=== PATIENT | male | born 1990 | race African-American/Black ===

== ENCOUNTER → 2017-04-05 | Emergency (ER) | payer OTHER ==
[~2017-04-05] MED LIST: ALBU17IN2 INH; ALBU1TAB4 INH; ALBU83IN INH; BREO1INH INH
[2017-04-05 02:56] VITALS: BP 159/110
== END | disposition home or self-care (01) ==
LOC: M ED 03:00
DX: J45.909 Unspecified asthma, uncomplicated (principal)

== ENCOUNTER 2017-08-14 08:29 | Emergency (ER) | payer OTHER ==
[~2017-08-14] VITALS: Ht 177.8 cm; Wt 131.8 kg
[2017-08-14] MEDS ORDERED: DICYCLOMINE INJ 20MG/2ML (J0500) IM ONE (09:30)
[2017-08-14] MEDS ORDERED: ONDANSETRON 4MG/2ML VIAL (J2405) IV ONE (09:30)
[2017-08-14] MEDS ORDERED: NS 1,000 ML IV ONE (09:30)
[2017-08-14] MEDS ORDERED: KETOROLAC 30 MG/ML VIAL (J1885) IV ONE (09:30)
[2017-08-14 09:57] LABS: BASO % 0.2 % (0.0-1.0); EOS # 0.1 10^3/uL (0.0-0.50); EOS % 0.5 % (0.0-3.0); IMMATURE GRANULOCYTE % 0.3 % (0-0); LYMPH # 0.8 10^3/uL (1.5-6.5); LYMPH % 6.6 % (24.0-44.0); MEAN CORPUSCULAR HEMOGLOBIN 28.8 pg (27.0-33.0); MEAN CORPUSCULAR HGB CONC 35.3 g/dl (32.0-36.5); MEAN CORPUSCULAR VOLUME 81.5 fl (80.0-96.0); MONO # 0.3 10^3/uL (0.0-0.8); MONO % 2.4 % (0.0-5.0); NEUTROPHILS # 11.3 10^3/uL (1.8-7.7); PLATELET COUNT, AUTOMATED 168 10^3/uL (150-450); WHITE BLOOD COUNT 12.5 10^3/uL (4.0-10.0)
[2017-08-14 10:16] LABS: ALBUMIN 4.5 GM/DL (3.2-5.2); ALKALINE PHOSPHATASE 68 U/L (45-117); ALT/SGPT 84 U/L (12-78); ANION GAP 6 MEQ/L (8-16); AST/SGOT 70 U/L (15-37); BILIRUBIN,DIRECT 0.3 MG/DL (0.0-0.2); BLOOD UREA NITROGEN 9 MG/DL (7-18); CALCIUM LEVEL 9.3 MG/DL (8.5-10.1); CARBON DIOXIDE LEVEL 30 MEQ/L (21-32); CHLORIDE LEVEL 104 MEQ/L (98-107); CREATININE FOR GFR 1.09 MG/DL (0.70-1.30); GLOMERULAR FILTRATION RATE > 60.0 (>60); GLUCOSE, FASTING 105 MG/DL (70-105); POTASSIUM SERUM 4.4 MEQ/L (3.5-5.1); SODIUM LEVEL 140 MEQ/L (136-145); TOTAL PROTEIN 7.5 GM/DL (6.4-8.2)
[2017-08-14] MEDS ORDERED: ALBUTEROL SULFATE 2.5 MG/0.5 ML INH NEB SOLN NEB ONE (10:30)
[2017-08-14] MEDS ORDERED: methylPREDNISolone INJ 125 MG/2 ML VIAL (J2930) IV ONE (10:30)
[2017-08-14] MEDS ORDERED: BENT20TA PO (10:34)
[2017-08-14] MEDS ORDERED: ZOFR4TAB3 PO (10:34)
[2017-08-14 10:35] VITALS: BP 137/77
== END 2017-08-14 11:08 | disposition home or self-care (01) ==
LOC: M ED 08:29
DX: B34.9 Viral infection, unspecified (principal); J45.909 Unspecified asthma, uncomplicated; Z79.899 Other long term (current) drug therapy; Z91.013 Allergy to seafood; Z87.891 Personal history of nicotine dependence
CPT/HCPCS: 80048; 80076; 83605; 83690; 85025; 94640; 96372; 96374; 96375; 99284; J0500; J1885; J2405; J2930

== ENCOUNTER 2017-10-04 00:06 | Emergency (ER) | payer OTHER ==
[~2017-10-04] VITALS: Ht 177.8 cm; Wt 131.8 kg
[2017-10-04 00:06] VITALS: BP 163/92
[~2017-10-04 00:06] MED LIST changes: +BENT20TA PO; +ZOFR4TAB3 PO
[2017-10-04 01:38] LABS: ABG BASE EXCESS -0.3 (-2.0-2.0); ABG HCO3 24.2 MEQ/L (22.0-26.0); ABG PARTIAL PRESSURE CO2 39.2 mmHg (35.0-45.0); ABG PARTIAL PRESSURE O2 75.5 mmHg (75.0-100.0); ABG STANDARD HCO3 24.2 MEQ/L (22.0-26.0); ABG TOTAL CO2 25.4 MEQ/L (22.0-29.0); ABG pH (ARTERIAL) 7.408 UNITS (7.350-7.450)
[2017-10-04] MEDS ORDERED: MORPHINE 2 MG/ML 1ML SYRINGE IV ONE (02:15)
[2017-10-04 02:55] LABS: INR 1.02
[2017-10-04 03:16] LABS: WHITE BLOOD COUNT 8.1 10^3/uL (4.0-10.0)
[2017-10-04 03:17] LABS: BASO % 0.4 % (0.0-1.0); IMMATURE GRANULOCYTE % 0.4 % (0-0); LYMPH % 12.8 % (24.0-44.0); MEAN CORPUSCULAR HEMOGLOBIN 28.3 pg (27.0-33.0); MEAN CORPUSCULAR HGB CONC 35.1 g/dl (32.0-36.5); MEAN CORPUSCULAR VOLUME 80.8 fl (80.0-96.0); MONO # 0.3 10^3/uL (0.0-0.8); MONO % 3.9 % (0.0-5.0); NEUTROPHILS # 6.7 10^3/uL (1.8-7.7); NEUTROPHILS % 82.5 % (36.0-66.0); PLATELET COUNT, AUTOMATED 178 10^3/uL (150-450); RED CELL DISTRIBUTION WIDTH 12.2 % (11.5-14.5)
[2017-10-04 03:18] LABS: ANION GAP 5 MEQ/L (8-16); BLOOD UREA NITROGEN 12 MG/DL (7-18); CALCIUM LEVEL 9.2 MG/DL (8.5-10.1); CARBON DIOXIDE LEVEL 29 MEQ/L (21-32); CHLORIDE LEVEL 105 MEQ/L (98-107); CREATININE FOR GFR 0.94 MG/DL (0.70-1.30); GLOMERULAR FILTRATION RATE > 60.0 (>60); GLUCOSE, FASTING 133 MG/DL (70-105); POTASSIUM SERUM 4.6 MEQ/L (3.5-5.1); SODIUM LEVEL 139 MEQ/L (136-145)
[2017-10-04] MEDS ORDERED: ISOVUE-370 76% 100ML VIAL (Q9967) As Ordered ONE (03:24)
--- NOTE | 2017-10-04 04:10 | REPUSA ---
CLINICAL HISTORY: Dyspnea, elevated d-dimers, exclude PE. TECHNIQUE: Multiple incremental axial, coronal and oblique images are obtained from the thoracic inle t to the upper abdomen. Intravenous contrast material was administered as per pulmonary embolism prot ocol. COMMENTS: There is poor opacification of pulmonary arterial system. Aorta is of normal caliber without evidence for dissection or aneurysm. There is no evidence of pleural or parenchymal mass. There are no pleural effusions. There is no evid ence of hilar or mediastinal lymphadenopathy. The heart and great vessels are within normal limits. Images of the upper abdomen demonstrate no evidence of adrenal mass. The bony structures are free of lytic or blastic lesions. IMPRESSION: Poor opacification of pulmonary arterial system Thank you for your kind referral of this patient.
--- NOTE | 2017-10-04 06:32 | ECGEPIP ---
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
--- NOTE | 2017-10-04 07:40 | REP ---
PA and lateral chest: There are no comparisons. The lung way are clear. The cardiac size is normal The kizzy, mediastinum, and bony thorax are unremarkable. Impression: Negative PA and lateral chest. No Signed by Salas Gutierrez MD 10/04/2017 07:31 A
== END 2017-10-04 04:35 | disposition home or self-care (01) ==
LOC: M ED 01:03
DX: R00.2 Palpitations (principal); J45.909 Unspecified asthma, uncomplicated; Z79.51 Long term (current) use of inhaled steroids; Z91.013 Allergy to seafood
CPT/HCPCS: 36600; 71020; 71275; 80048; 82803; 85025; 85610; 85730; 93005; 96374; 99284; Q9967

== ENCOUNTER 2017-10-21 20:37 | Emergency (ER) | payer OTHER | END 2017-10-21 23:46 | disposition home or self-care (01) | LOC: M ED 20:37 | DX: F41.9 Anxiety disorder, unspecified (principal); J45.909 Unspecified asthma, uncomplicated | CPT/HCPCS: 87804 ==

== ENCOUNTER → 2017-10-22 | Outpatient (CLI) | payer OTHER ==
[2017-10-22 13:11] LABS: FREE T4 1.18 NG/DL (0.76-1.46); THYROID STIMULATING HORMONE 0.651 uIU/ML (0.358-3.740)
[2017-10-22 13:35] LABS: ESTIMATED AVERAGE GLUCOSE 111 MG/DL (60-110); HEMOGLOBIN A1c 5.5 %
== END ==
LOC: M LAB 12:05
DX: R00.2 Palpitations (principal); Z13.1 Encounter for screening for diabetes mellitus
CPT/HCPCS: 84443

== ENCOUNTER → 2017-10-22 | Outpatient (REF) | payer OTHER | LOC: M SFHCPLAZ 11:29 | DX: R00.2 Palpitations (principal); Z13.1 Encounter for screening for diabetes mellitus ==

== ENCOUNTER 2017-10-23 21:27 | Emergency (ER) | payer OTHER ==
[2017-10-23] MEDS: NS 1,000 ML IV (22:15)
[2017-10-23] MEDS: LORazepam 0.5 MG TAB PO (22:26)
[2017-10-23 22:38] LABS: BASO # 0.1 10^3/uL (0.0-0.2); BASO % 0.5 % (0.0-1.0); EOS # 0.1 10^3/uL (0.0-0.50); EOS % 0.7 % (0.0-3.0); HEMATOCRIT 50.8 % (42.0-52.0); HEMOGLOBIN 18.5 g/dl (14.0-18.0); IMMATURE GRANULOCYTE % 0.4 % (0-0); LYMPH # 3.1 10^3/uL (1.5-6.5); LYMPH % 28.2 % (24.0-44.0); MEAN CORPUSCULAR HEMOGLOBIN 28.4 pg (27.0-33.0); MEAN CORPUSCULAR HGB CONC 36.4 g/dl (32.0-36.5); MEAN CORPUSCULAR VOLUME 77.9 fl (80.0-96.0); MONO # 0.7 10^3/uL (0.0-0.8); MONO % 6.4 % (0.0-5.0); NEUTROPHILS # 7.1 10^3/uL (1.8-7.7); NEUTROPHILS % 63.8 % (36.0-66.0); PLATELET COUNT, AUTOMATED 229 10^3/uL (150-450); RED BLOOD COUNT 6.52 10^6/uL (4.30-6.10); RED CELL DISTRIBUTION WIDTH 11.9 % (11.5-14.5); WHITE BLOOD COUNT 11.2 10^3/uL (4.0-10.0)
[2017-10-23 22:49] LABS: PROTHROMBIN TIME 13.3 SECONDS (12.4-14.5)
[2017-10-23 22:50] LABS: PARTIAL THROMBOPLASTIN TIME 30.3 SECONDS (26.8-37.9)
[2017-10-23] MEDS ORDERED: ISOVUE-370 76% 100ML VIAL (Q9967) As Ordered (22:55)
[2017-10-23 22:57] LABS: ALBUMIN 4.8 GM/DL (3.2-5.2); ALBUMIN/GLOBULIN RATIO 1.41 (1.00-1.93); ALKALINE PHOSPHATASE 66 U/L (45-117); ALT/SGPT 66 U/L (12-78); ANION GAP 10 MEQ/L (8-16); AST/SGOT 33 U/L (7-37); BILIRUBIN,DIRECT 0.2 MG/DL (0.0-0.2); BILIRUBIN,TOTAL 0.9 MG/DL (0.2-1.0); BLOOD UREA NITROGEN 15 MG/DL (7-18); CALCIUM LEVEL 9.4 MG/DL (8.5-10.1); CARBON DIOXIDE LEVEL 24 MEQ/L (21-32); CHLORIDE LEVEL 104 MEQ/L (98-107); CPK CREATINE PHOSPHOKINASE 147 U/L (39-308); CREATININE FOR GFR 1.07 MG/DL (0.70-1.30); GLOMERULAR FILTRATION RATE > 60.0 (>60); GLUCOSE, FASTING 124 MG/DL (70-105); MB/CK RELATIVE INDEX 0.68 (< OR =4); POTASSIUM SERUM 3.5 MEQ/L (3.5-5.1); SODIUM LEVEL 138 MEQ/L (136-145); TOTAL PROTEIN 8.2 GM/DL (6.4-8.2); TROPONIN I < 0.02 NG/ML (< 0.10)
== END 2017-10-24 00:17 | disposition home or self-care (01) ==
LOC: M ED 10-24 00:17
DX: F41.1 Generalized anxiety disorder (principal); R00.2 Palpitations; I10 Essential (primary) hypertension; J45.909 Unspecified asthma, uncomplicated; F12.90 Cannabis use, unspecified, uncomplicated; Z79.51 Long term (current) use of inhaled steroids; Z79.899 Other long term (current) drug therapy; Z91.013 Allergy to seafood; Z82.49 Family history of ischemic heart disease and other diseases of the circulatory system; Z87.891 Personal history of nicotine dependence
CPT/HCPCS: Q9967

== ENCOUNTER → 2017-10-29 | Outpatient (CLI) | payer OTHER ==
[2017-10-29 16:04] LABS: BASO % 0.5 % (0.0-1.0); EOS # 0.1 10^3/uL (0.0-0.50); EOS % 1.2 % (0.0-3.0); HEMATOCRIT 45.1 % (42.0-52.0); HEMOGLOBIN 16.1 g/dl (14.0-18.0); IMMATURE GRANULOCYTE % 0.4 % (0-0); LYMPH # 2.6 10^3/uL (1.5-6.5); LYMPH % 32.9 % (24.0-44.0); MEAN CORPUSCULAR HEMOGLOBIN 28.2 pg (27.0-33.0); MEAN CORPUSCULAR HGB CONC 35.7 g/dl (32.0-36.5); MEAN CORPUSCULAR VOLUME 79.1 fl (80.0-96.0); MONO # 0.5 10^3/uL (0.0-0.8); MONO % 6.8 % (0.0-5.0); NEUTROPHILS # 4.5 10^3/uL (1.8-7.7); NEUTROPHILS % 58.2 % (36.0-66.0); PLATELET COUNT, AUTOMATED 156 10^3/uL (150-450); RED CELL DISTRIBUTION WIDTH 11.8 % (11.5-14.5); WHITE BLOOD COUNT 7.8 10^3/uL (4.0-10.0)
[2017-11-04 00:07] LABS: METANEPHRINE PLASMA 37 pg/mL (0-62); NORMETANEPHRINE PLASMA 144 pg/mL (0-145)
== END ==
LOC: M LAB 15:08
DX: F06.4 Anxiety disorder due to known physiological condition (principal)
CPT/HCPCS: 83835

== ENCOUNTER 2017-11-21 01:51 | Observation (INO) | payer OTHER ==
[2017-11-21 03:14] LABS: BASO % 0.6 % (0.0-1.0); EOS # 0.2 10^3/uL (0.0-0.50); EOS % 2.2 % (0.0-3.0); HEMATOCRIT 43.9 % (42.0-52.0); HEMOGLOBIN 15.2 g/dl (14.0-18.0); IMMATURE GRANULOCYTE % 0.1 % (0-0); LYMPH # 3.1 10^3/uL (1.5-6.5); LYMPH % 42.7 % (24.0-44.0); MEAN CORPUSCULAR HEMOGLOBIN 28.5 pg (27.0-33.0); MEAN CORPUSCULAR HGB CONC 34.6 g/dl (32.0-36.5); MEAN CORPUSCULAR VOLUME 82.4 fl (80.0-96.0); MONO # 0.4 10^3/uL (0.0-0.8); MONO % 5.8 % (0.0-5.0); NEUTROPHILS # 3.5 10^3/uL (1.8-7.7); NEUTROPHILS % 48.6 % (36.0-66.0); PLATELET COUNT, AUTOMATED 148 10^3/uL (150-450); RED BLOOD COUNT 5.33 10^6/uL (4.30-6.10); RED CELL DISTRIBUTION WIDTH 12.1 % (11.5-14.5); WHITE BLOOD COUNT 7.2 10^3/uL (4.0-10.0)
[2017-11-21 03:29] LABS: ALBUMIN 4.1 GM/DL (3.2-5.2); ALBUMIN/GLOBULIN RATIO 1.28 (1.00-1.93); ALKALINE PHOSPHATASE 58 U/L (45-117); ALT/SGPT 94 U/L (12-78); ANION GAP 6 MEQ/L (8-16); AST/SGOT 168 U/L (7-37); BILIRUBIN,DIRECT < 0.1 MG/DL (0.0-0.2); BILIRUBIN,TOTAL 0.3 MG/DL (0.2-1.0); BLOOD UREA NITROGEN 8 MG/DL (7-18); CALCIUM LEVEL 8.9 MG/DL (8.5-10.1); CARBON DIOXIDE LEVEL 30 MEQ/L (21-32); CHLORIDE LEVEL 104 MEQ/L (98-107); CREATININE FOR GFR 1.03 MG/DL (0.70-1.30); GLOMERULAR FILTRATION RATE > 60.0 (>60); GLUCOSE, FASTING 113 MG/DL (70-100); PHOSPHORUS LEVEL 4.2 MG/DL (2.5-4.9); POTASSIUM SERUM 3.7 MEQ/L (3.5-5.1); SODIUM LEVEL 140 MEQ/L (136-145); TOTAL PROTEIN 7.3 GM/DL (6.4-8.2); TROPONIN I < 0.02 NG/ML (< 0.10)
[2017-11-21 03:41] LABS: CK-MB VALUE MASS 2.2 NG/ML (0.0-3.6); CPK CREATINE PHOSPHOKINASE 6327 U/L (39-308); MB/CK RELATIVE INDEX 0.03 (< OR =4); THYROID STIMULATING HORMONE 0.932 uIU/ML (0.358-3.740)
[2017-11-21] MEDS: NS 1,000 ML IV ×8 (03:45→18:04)
[2017-11-21] MEDS ORDERED: ACETAMINOPHEN 500 MG TAB PO ×2 (04:00)
[2017-11-21] MEDS: ALBUTEROL SULFATE 2.5 MG/0.5 ML INH NEB SOLN INH ×2 (07:51)
[2017-11-21] MEDS: BUDESONIDE 0.5 MG/2 ML INHALATION SUSPENSION INH ×4 (07:51→21:13)
[2017-11-21] MEDS: ENOXAPARIN 40 MG/0.4 ML SYRINGE (J1650) SC ×2 (08:51)
[2017-11-21] MEDS: hydrOXYzine 25 MG TAB PO ×2 (08:51)
[2017-11-21] MEDS: ALBUTEROL 90 MCG/ACT 8GM HFA INHALER INH ×2 (10:52)
[2017-11-21] MEDS ORDERED: IPRATROPIUM 0.5MG/ALBUTEROL 2.5MG INH SOL UD 3ML (DUONEB)(J7620) NEB ×2 (13:00)
[2017-11-21] MEDS: IPRATROPIUM 0.5MG/ALBUTEROL 2.5MG INH SOL UD 3ML (DUONEB)(J7620) NEB ×4 (13:27→21:13)
[2017-11-21 13:41] LABS: TROPONIN I < 0.02 NG/ML (< 0.10)
[2017-11-21 13:52] LABS: CK-MB VALUE MASS 1.8 NG/ML (0.0-3.6); CPK CREATINE PHOSPHOKINASE 3901 U/L (39-308); MB/CK RELATIVE INDEX 0.04 (< OR =4)
[2017-11-21 22:44] LABS: CK-MB VALUE MASS 1.1 NG/ML (0.0-3.6); CPK CREATINE PHOSPHOKINASE 2955 U/L (39-308); MB/CK RELATIVE INDEX 0.03 (< OR =4); TROPONIN I < 0.02 NG/ML (< 0.10)
[2017-11-22] MEDS: NS 1,000 ML IV ×6 (00:11→13:17)
[2017-11-22] MEDS: IPRATROPIUM 0.5MG/ALBUTEROL 2.5MG INH SOL UD 3ML (DUONEB)(J7620) NEB ×4 (01:47→07:38)
[2017-11-22 06:10] LABS: BASO # 0.1 10^3/uL (0.0-0.2); BASO % 0.9 % (0.0-1.0); EOS # 0.2 10^3/uL (0.0-0.50); EOS % 2.3 % (0.0-3.0); HEMATOCRIT 40.9 % (42.0-52.0); HEMOGLOBIN 14.2 g/dl (14.0-18.0); IMMATURE GRANULOCYTE % 0.2 % (0-0); LYMPH % 45.7 % (24.0-44.0); MEAN CORPUSCULAR HEMOGLOBIN 28.3 pg (27.0-33.0); MEAN CORPUSCULAR HGB CONC 34.7 g/dl (32.0-36.5); MEAN CORPUSCULAR VOLUME 81.6 fl (80.0-96.0); MONO # 0.4 10^3/uL (0.0-0.8); MONO % 5.6 % (0.0-5.0); NEUTROPHILS % 45.3 % (36.0-66.0); PLATELET COUNT, AUTOMATED 122 10^3/uL (150-450); RED BLOOD COUNT 5.01 10^6/uL (4.30-6.10); RED CELL DISTRIBUTION WIDTH 12.1 % (11.5-14.5); WHITE BLOOD COUNT 6.6 10^3/uL (4.0-10.0)
[2017-11-22 06:37] LABS: ALBUMIN 3.4 GM/DL (3.2-5.2); ALBUMIN/GLOBULIN RATIO 1.21 (1.00-1.93); ALKALINE PHOSPHATASE 48 U/L (45-117); ALT/SGPT 73 U/L (12-78); ANION GAP 7 MEQ/L (8-16); AST/SGOT 71 U/L (7-37); BILIRUBIN,TOTAL 0.3 MG/DL (0.2-1.0); BLOOD UREA NITROGEN 7 MG/DL (7-18); CALCIUM LEVEL 8.2 MG/DL (8.5-10.1); CARBON DIOXIDE LEVEL 25 MEQ/L (21-32); CHLORIDE LEVEL 111 MEQ/L (98-107); CPK CREATINE PHOSPHOKINASE 2036 U/L (39-308); CREATININE FOR GFR 0.79 MG/DL (0.70-1.30); GLOMERULAR FILTRATION RATE > 60.0 (>60); GLUCOSE, FASTING 90 MG/DL (70-100); MAGNESIUM LEVEL 2.1 MG/DL (1.8-2.4); POTASSIUM SERUM 4.1 MEQ/L (3.5-5.1); SODIUM LEVEL 143 MEQ/L (136-145); TOTAL PROTEIN 6.2 GM/DL (6.4-8.2)
[2017-11-22] MEDS: BUDESONIDE 0.5 MG/2 ML INHALATION SUSPENSION INH ×2 (07:38)
[2017-11-22] MEDS: ENOXAPARIN 40 MG/0.4 ML SYRINGE (J1650) SC ×2 (09:47)
[2017-11-22] MEDS: hydrOXYzine 25 MG TAB PO ×2 (09:47)
== END 2017-11-22 13:43 | disposition home or self-care (01) ==
LOC: M ED 01:51 → M ED INP 01:52 → M MSPAV 16:09
DX: R00.2 Palpitations (principal); M62.82 Rhabdomyolysis; J45.909 Unspecified asthma, uncomplicated; K21.9 Gastro-esophageal reflux disease without esophagitis; F41.9 Anxiety disorder, unspecified; A63.0 Anogenital (venereal) warts; Z87.891 Personal history of nicotine dependence; F12.10 Cannabis abuse, uncomplicated
CPT/HCPCS: J1650

== ENCOUNTER 2018-01-30 00:18 | Emergency (ER) | payer OTHER ==
[2018-01-30] MEDS: ONDANSETRON 4MG/2ML VIAL (J2405) IV (03:30)
[2018-01-30] MEDS: NS 1,000 ML IV (04:14)
[2018-01-30] MEDS: PANTOPRAZOLE 40MG INJ (PROTONIX) (C9113) IV (04:51)
[2018-01-30] MEDS: KETOROLAC 30 MG/ML VIAL (J1885) IV (04:51)
[2018-01-30 05:04] LABS: BASO % 0.3 % (0.0-1.0); EOS # 0.1 10^3/uL (0.0-0.50); EOS % 1.1 % (0.0-3.0); HEMATOCRIT 45.4 % (42.0-52.0); HEMOGLOBIN 15.9 g/dl (13.5-17.5); IMMATURE GRANULOCYTE % 0.5 % (0-3.0); LYMPH # 1.4 10^3/uL (1.5-6.5); LYMPH % 18.4 % (24.0-44.0); MEAN CORPUSCULAR HEMOGLOBIN 28.2 pg (27.0-33.0); MEAN CORPUSCULAR VOLUME 80.6 fl (80.0-96.0); MONO # 0.5 10^3/uL (0.0-0.8); MONO % 6.3 % (0.0-5.0); NEUTROPHILS # 5.4 10^3/uL (1.8-7.7); NEUTROPHILS % 73.4 % (36.0-66.0); PLATELET COUNT, AUTOMATED 144 10^3/uL (150-450); RED BLOOD COUNT 5.63 10^6/uL (4.30-6.10); WHITE BLOOD COUNT 7.4 10^3/uL (4.0-10.0)
[2018-01-30 05:41] LABS: ALBUMIN 3.9 GM/DL (3.2-5.2); ALBUMIN/GLOBULIN RATIO 1.39 (1.00-1.93); ALKALINE PHOSPHATASE 66 U/L (45-117); ALT/SGPT 58 U/L (12-78); ANION GAP 7 MEQ/L (8-16); AST/SGOT 51 U/L (7-37); BILIRUBIN,DIRECT 0.1 MG/DL (0.0-0.2); BILIRUBIN,TOTAL 0.7 MG/DL (0.2-1.0); BLOOD UREA NITROGEN 9 MG/DL (7-18); CALCIUM LEVEL 8.8 MG/DL (8.5-10.1); CARBON DIOXIDE LEVEL 26 MEQ/L (21-32); CHLORIDE LEVEL 108 MEQ/L (98-107); CREATININE FOR GFR 0.77 MG/DL (0.70-1.30); GLOMERULAR FILTRATION RATE > 60.0 (>60); GLUCOSE, FASTING 95 MG/DL (70-100); LIPASE 145 U/L (73-393); POTASSIUM SERUM 4.7 MEQ/L (3.5-5.1); SODIUM LEVEL 141 MEQ/L (136-145); TOTAL PROTEIN 6.7 GM/DL (6.4-8.2)
== END 2018-01-30 06:56 | disposition home or self-care (01) ==
LOC: M ED 00:18
DX: K52.9 Noninfective gastroenteritis and colitis, unspecified (principal); F12.10 Cannabis abuse, uncomplicated; Z79.899 Other long term (current) drug therapy; Z91.013 Allergy to seafood
CPT/HCPCS: C9113

== ENCOUNTER 2018-05-03 12:36 | Emergency (ER) | payer OTHER | END 2018-05-03 14:22 | disposition home or self-care (01) | LOC: M ED 12:36 | DX: S99.911A Unspecified injury of right ankle, initial encounter (principal); X50.1XXA Overexertion from prolonged static or awkward postures, initial encounter; Y92.830 Public park as the place of occurrence of the external cause; J45.909 Unspecified asthma, uncomplicated; I10 Essential (primary) hypertension; K21.9 Gastro-esophageal reflux disease without esophagitis; F41.9 Anxiety disorder, unspecified; Z87.891 Personal history of nicotine dependence; Z87.81 Personal history of (healed) traumatic fracture; Z91.013 Allergy to seafood; Z79.899 Other long term (current) drug therapy | CPT/HCPCS: 73610 ==

== ENCOUNTER 2019-04-04 14:42 | Emergency (ER) | payer MEDICAID, OTHER, SELFPAY ==
[~2019-04-04] VITALS: Ht 177.8 cm; Wt 131.8 kg
[~2019-04-04 14:42] MED LIST changes: +ASPI-222 PO; +ATIV1TAB10 PO; +CHLO125TA PO; +FLON1SPR; +HYDR-3363 PO; +HYDR-3715 PO; +QVAR80AE10 IN; +RANI300C PO; +VENL75CA47 PO; +ZOFR4TAB14 PO; -ZOFR4TAB3 PO
[2019-04-04 14:43] VITALS: BP 137/84
[2019-04-04] MEDS ORDERED: NAPR-837 PO (15:21)
--- NOTE | 2019-04-05 07:41 | REP ---
RIGHT ANKLE, FOUR VIEWS: Four views of the right ankle are performed. There is a rounded calcific density adjacent to the medial malleolus which probably represents an old avulsion fracture. I see no acute fracture or dislocation. The ankle mortise is anatomic. IMPRESSION: No acute fracture or dislocation. Probably an old avulsion fracture medial malleolus. Electronically Signed by Salas Garcia MD 04/05/2019 08:37 A
== END 2019-04-04 15:43 | disposition home or self-care (01) ==
LOC: M ED 14:42
DX: S96.911A Strain of unspecified muscle and tendon at ankle and foot level, right foot, initial encounter (principal); M65.271 Calcific tendinitis, right ankle and foot; X58.XXXA Exposure to other specified factors, initial encounter; Y92.9 Unspecified place or not applicable; Y93.62 Activity, american flag or touch football; Y99.9 Unspecified external cause status; J45.909 Unspecified asthma, uncomplicated; Z87.81 Personal history of (healed) traumatic fracture; Z79.899 Other long term (current) drug therapy; Z91.013 Allergy to seafood

== ENCOUNTER 2019-04-09 22:10 | Emergency (ER) | payer MEDICAID, SELFPAY ==
[~2019-04-09] VITALS: Ht 177.8 cm; Wt 131.8 kg
[2019-04-09 22:10] VITALS: BP 144/81
[~2019-04-09 22:10] MED LIST changes: +NAPR-837 PO
[2019-04-09] MEDS ORDERED: AUGM500T34 PO (23:29)
== END 2019-04-09 23:35 | disposition home or self-care (01) ==
LOC: M ED 22:10
DX: R59.0 Localized enlarged lymph nodes (principal); J45.909 Unspecified asthma, uncomplicated; Z91.013 Allergy to seafood; F41.9 Anxiety disorder, unspecified; Z79.899 Other long term (current) drug therapy

== ENCOUNTER 2019-10-05 14:27 | Emergency (ER) | payer MEDICAID, OTHER ==
[~2019-10-05] VITALS: Ht 177.8 cm; Wt 131.8 kg
[~2019-10-05 14:27] MED LIST changes: -ASPI-222 PO; +ASPI-527 PO; +AUGM500T34 PO
[2019-10-05] MEDS ORDERED: BREO1INH3 (14:36)
[2019-10-05] MEDS ORDERED: PANT40TA3 (14:36)
[2019-10-05] MEDS ORDERED: ALBU8.5H (14:36)
[2019-10-05] MEDS ORDERED: ASPIRIN 81 MG CHEW TABLET PO ONE (16:00)
--- NOTE | 2019-10-05 16:17 | REP ---
Two-view chest: 10/05/2019. Indication: Chest pain. Comparison: 11/21/2017. Findings: The lungs are clear. There is no pleural effusion or pneumothorax. The cardiomediastinal silhouette is unremarkable. Impression: No acute cardiopulmonary process. Electronically Signed by Ranjit Raya DO 10/05/2019 04:08 P
[2019-10-05 17:38] VITALS: BP 148/72
[2019-10-05 18:08] LABS: CHLAMYDIA DNA AMPLIFICATION NEGATIVE (NEGATIVE); GC DNA AMPLIFICATION NEGATIVE (NEGATIVE)
--- NOTE | 2019-10-06 08:05 | ECGEPIP ---
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
== END 2019-10-05 17:43 | disposition home or self-care (01) ==
LOC: M ED 14:27
DX: S29.011A Strain of muscle and tendon of front wall of thorax, initial encounter (principal); X58.XXXA Exposure to other specified factors, initial encounter; Y92.89 Other specified places as the place of occurrence of the external cause; R30.0 Dysuria; J45.909 Unspecified asthma, uncomplicated; F41.9 Anxiety disorder, unspecified; Z79.899 Other long term (current) drug therapy; Z87.891 Personal history of nicotine dependence

== ENCOUNTER → 2019-11-15 | Outpatient (CLI) | payer OTHER ==
[~2019-11-15] MED LIST changes: +ALBU8.5H; +BREO1INH3; +PANT40TA3
--- NOTE | 2019-11-15 15:04 | REP ---
MRI RIGHT SHOULDER: TECHNIQUE: Axial T2 fat sat, gradient echo, sagittal oblique T2 fat sat, coronal oblique T1, T2 fat sat. There is mild ill-defined high signal involving the supraspinatus, infraspinatus and subscapularis tendons compatible with tendinopathy/tendinitis. I cannot exclude mild fraying of these tendons. There is no full thickness tear of any of the rotator cuff tendons. There is a minor amount of fluid in the acromioclavicular joint. The acromion is downward sloping and is type 2. The biceps tendon is seen within the bicipital groove with no tenosynovitis. There is no Hill-Sachs deformity. The deltoid muscle demonstrates no abnormal signal. There is mild fraying of the biceps labral complex. Superior labrum also appears mildly frayed. Otherwise, there is no evidence of a labral tear and no evidence of paralabral cyst. There is no bone marrow edema or occult fracture. Mild fluid in the subdeltoid bursa suggests an element of bursitis. IMPRESSION: Tendinopathy/tendinitis of the supraspinatus, infraspinatus and subscapularis tendons. I cannot exclude fraying of these tendons. Acromion is downward sloping and type 2. There appears to be mild fraying of the biceps labral complex and superior labrum with no definite full thickness labral tear. Mild fluid in the subdeltoid bursa suggests an element of bursitis. Electronically Signed by Salas Garcia MD 11/17/2019 12:01 P
== END ==
LOC: M RAD 07:11
PROVIDERS: ATTEND Orthopaedic Surgery Hand Surgery
DX: S43.431A Superior glenoid labrum lesion of right shoulder, initial encounter (principal); M75.81 Other shoulder lesions, right shoulder; M75.41 Impingement syndrome of right shoulder

== ENCOUNTER 2019-11-17 13:00 | Outpatient (RCR) | payer OTHER | END 2019-11-19 | LOC: M PT 13:00 | PROVIDERS: ATTEND Orthopaedic Surgery Hand Surgery | DX: M75.41 Impingement syndrome of right shoulder (principal) ==

== ENCOUNTER → 2019-12-02 | Outpatient (REF) | payer OTHER | LOC: M LAB REF 08:29 | PROVIDERS: ATTEND Physician Assistant | DX: R30.0 Dysuria (principal) ==

== ENCOUNTER → 2020-04-01 | Outpatient (REF) | payer OTHER ==
[2020-04-01 13:36] LABS: APPEARANCE, URINE CLEAR (CLEAR); BACTERIA, URINE AUTO NEGATIVE (NEGATIVE); BILIRUBIN, URINE AUTO NEGATIVE (NEGATIVE); BLOOD, URINE BLOOD NEGATIVE (NEGATIVE); COLOR, URINE YELLOW (YELLOW); GLUCOSE, URINE (UA) AUTO NEGATIVE (NEGATIVE); KETONE, URINE AUTO NEGATIVE (NEGATIVE); LEUKOCYTE ESTERASE, URINE AUTO NEGATIVE (NEGATIVE); NITRITE, URINE AUTO NEGATIVE (NEGATIVE); PROTEIN, URINE AUTO NEGATIVE (NEGATIVE); RBC, URINE AUTO 0 /HPF (0-3); SPECIFIC GRAVITY URINE AUTO 1.012 (1.002-1.035); SQUAMOUS EPITHELIAL CELL UR AU 0 /HPF (0-6); UROBILINOGEN, URINE AUTO 0.2 mg/dL (0.0-2.0); WBC, URINE AUTO 2 /HPF (0-3)
[2020-04-01 15:00] LABS: CHLAMYDIA DNA AMPLIFICATION NEGATIVE (NEGATIVE); GC DNA AMPLIFICATION NEGATIVE (NEGATIVE)
== END ==
LOC: M LAB REF 13:07
PROVIDERS: ATTEND Physician Assistant Medical
DX: N39.0 Urinary tract infection, site not specified (principal); Z11.3 Encounter for screening for infections with a predominantly sexual mode of transmission

== ENCOUNTER → 2020-04-07 | Outpatient (REF) | payer OTHER, MEDICAID ==
[~2020-04-07] MED LIST changes: +ADV500INH INH; +LISI10TA15 PO; +METO1TAB87 PO; +MONT10TA4; +PANT40TA29; -PANT40TA3; +PRED10TA2
[2020-04-07 12:57] LABS: BASO # 0.1 10^3/uL (0.0-0.2); BASO % 0.6 % (0.0-1.0); EOS # 0.2 10^3/uL (0.0-0.5); EOS % 2.5 % (0.0-3.0); HEMATOCRIT 47.5 % (42.0-52.0); HEMOGLOBIN 16.2 g/dl (13.5-17.5); LYMPH # 3.3 10^3/uL (1.5-5.0); LYMPH % 34.5 % (24.0-44.0); MEAN CORPUSCULAR HEMOGLOBIN 28.4 pg (27.0-33.0); MEAN CORPUSCULAR HGB CONC 34.1 g/dl (32.0-36.5); MEAN CORPUSCULAR VOLUME 83.2 fl (80.0-96.0); MONO # 0.6 10^3/uL (0.0-0.8); MONO % 6.3 % (0.0-5.0); NEUTROPHILS # 5.4 10^3/uL (1.5-8.5); NEUTROPHILS % 55.8 % (36.0-66.0); PLATELET COUNT, AUTOMATED 164 10^3/uL (150-450); RED BLOOD COUNT 5.71 10^6/uL (4.30-6.10); WHITE BLOOD COUNT 9.6 10^3/uL (4.0-10.0)
[2020-04-07 13:10] LABS: ALBUMIN 3.9 GM/DL (3.2-5.2); ALT/SGPT 77 U/L (12-78); BILIRUBIN,TOTAL 0.6 MG/DL (0.2-1.0); BLOOD UREA NITROGEN 11 MG/DL (7-18); CALCIUM LEVEL 8.9 MG/DL (8.5-10.1); CARBON DIOXIDE LEVEL 27 MEQ/L (21-32); CHLORIDE LEVEL 107 MEQ/L (98-107); CHOLESTEROL LEVEL 165 MG/DL (<200); CHOLESTEROL RISK RATIO 4.342 (<5); CREATININE FOR GFR 0.94 MG/DL (0.70-1.30); GLOMERULAR FILTRATION RATE > 60.0 (>60); GLUCOSE, FASTING 92 MG/DL (70-100); HDL CHOLESTEROL 38 MG/DL (>40); HEMOGLOBIN A1c 5.6 %; LDL CHOLESTEROL 104 MG/DL (<100); NON-HDL-C 127 MG/DL; POTASSIUM SERUM 4.4 MEQ/L (3.5-5.1); SODIUM LEVEL 141 MEQ/L (136-145); THYROXINE (T4) 8.8 UG/DL (4.5-12.0); TOTAL PROTEIN 6.9 GM/DL (6.4-8.2); TRIGLYCERIDES LEVEL 114 MG/DL (<150)
[2020-04-07 18:04] LABS: TOTAL 25(OH) VITAMIN D 14.3 NG/ML (30.0-100.0)
[2020-04-07 18:07] LABS: THYROID PEROXIDASE ANTIBODY 31.3 U/ML (<60.0)
[2020-04-07 18:08] LABS: THYROGLOBULIN ANTIBODY 17.6 U/ML (<60.0); TOTAL T3 115.6 NG/DL (60.0-181.0)
== END ==
LOC: M LAB REF 11:58
PROVIDERS: ATTEND Family Medicine
DX: R00.2 Palpitations (principal)

== ENCOUNTER 2020-08-18 23:00 | Emergency (ER) | payer OTHER, MEDICAID ==
[~2020-08-18] VITALS: Ht 177.8 cm; Wt 127.8 kg
[~2020-08-18 23:00] MED LIST changes: -ADV500INH INH; -LISI10TA15 PO; -METO1TAB87 PO; -MONT10TA4; -PRED10TA2
[2020-08-18] MEDS ORDERED: ADV500INH INH (23:13)
[2020-08-18] MEDS ORDERED: COMBIVENT RESPIMAT 100-20MCG INHALER 4GM INH STA (23:25)
[2020-08-18 23:46] VITALS: BP 160/99
--- NOTE | 2020-08-18 23:52 | REPVR ---
PROCEDURE INFORMATION: Exam: XR Chest, 2 Views Exam date and time: 08/18/2020 11:42 PM Age: 29 years old Clinical indication: Other: Dyspnea/cough TECHNIQUE: Imaging protocol: XR of the chest Views: 2 views. COMPARISON: CR Chest, 2 view PA, Lat 11/21/2017 2:42 AM FINDINGS: Lungs: Unremarkable. No consolidation. Pleural space: Unremarkable. No pleural effusion. No pneumothorax. Heart/Mediastinum: Unremarkable. No cardiomegaly. Bones/joints: Unremarkable. Soft tissues: There are moderately generous overlying soft tissues. IMPRESSION: Negative chest without significant change from 11/21/2017. Electronically signed by: Rivas Hurst On 08/18/2020 23:51:53 PM
[2020-08-19] MEDS ORDERED: LISI10TA15 PO (00:06)
== END 2020-08-19 00:26 | disposition home or self-care (01) ==
LOC: M ED 23:00
DX: J45.901 Unspecified asthma with (acute) exacerbation (principal); I10 Essential (primary) hypertension; K21.9 Gastro-esophageal reflux disease without esophagitis; Z79.899 Other long term (current) drug therapy; Z91.018 Allergy to other foods

== ENCOUNTER 2020-08-19 22:44 | Emergency (ER) | payer OTHER, MEDICAID ==
[~2020-08-19] VITALS: Ht 177.8 cm; Wt 128.0 kg
[2020-08-19 22:44] VITALS: BP 144/94
[~2020-08-19 22:44] MED LIST changes: +ADV500INH INH; +LISI10TA15 PO
== END 2020-08-20 00:04 | disposition home or self-care (01) ==
LOC: M ED 22:44
DX: I10 Essential (primary) hypertension (principal); J45.909 Unspecified asthma, uncomplicated; Z79.899 Other long term (current) drug therapy; Z91.018 Allergy to other foods

== ENCOUNTER 2020-08-24 18:26 | Emergency (ER) | payer MEDICAID, OTHER ==
[~2020-08-24] VITALS: Ht 177.8 cm; Wt 123.3 kg
[2020-08-24] MEDS ORDERED: MONT10TA4 (18:34)
[2020-08-24] MEDS ORDERED: PRED10TA2 (18:34)
[2020-08-24] MEDS ORDERED: COMBIVENT RESPIMAT 100-20MCG INHALER 4GM INH STA (20:26)
[2020-08-24] MEDS ORDERED: ACETAMINOPHEN 500 MG TAB PO ONE (20:30)
[2020-08-24] MEDS ORDERED: methylPREDNISolone 125MG 2ML VIAL IV ONE (20:30)
[2020-08-24 20:40] LABS: BASO # 0.1 10^3/uL (0.0-0.2); BASO % 0.5 % (0.0-1.0); EOS # 0.2 10^3/uL (0.0-0.5); EOS % 1.1 % (0.0-3.0); HEMATOCRIT 54.6 % (42.0-52.0); HEMOGLOBIN 18.4 g/dl (13.5-17.5); LYMPH # 3.5 10^3/uL (1.5-5.0); LYMPH % 25.7 % (24.0-44.0); MEAN CORPUSCULAR HEMOGLOBIN 27.6 pg (27.0-33.0); MEAN CORPUSCULAR HGB CONC 33.7 g/dl (32.0-36.5); MONO # 0.8 10^3/uL (0.0-0.8); MONO % 6.1 % (0.0-5.0); NEUTROPHILS % 66.2 % (36.0-66.0); PLATELET COUNT, AUTOMATED 210 10^3/uL (150-450); RED BLOOD COUNT 6.66 10^6/uL (4.30-6.10); WHITE BLOOD COUNT 13.6 10^3/uL (4.0-10.0)
[2020-08-24 21:13] LABS: ALBUMIN 4.8 GM/DL (3.2-5.2); ALT/SGPT 72 U/L (12-78); BILIRUBIN,DIRECT 0.1 MG/DL (0.0-0.2); BILIRUBIN,TOTAL 0.8 MG/DL (0.2-1.0); BLOOD UREA NITROGEN 16 MG/DL (7-18); CALCIUM LEVEL 10.1 MG/DL (8.5-10.1); CARBON DIOXIDE LEVEL 25 MEQ/L (21-32); CHLORIDE LEVEL 102 MEQ/L (98-107); GLOMERULAR FILTRATION RATE > 60.0 (>60); GLUCOSE, FASTING 92 MG/DL (70-100); POTASSIUM SERUM 4.6 MEQ/L (3.5-5.1); SODIUM LEVEL 135 MEQ/L (136-145); TOTAL PROTEIN 8.2 GM/DL (6.4-8.2)
[2020-08-24] MEDS ORDERED: NS 1,000 ML IV ONE (21:30)
[2020-08-24] MEDS ORDERED: METOPROLOL 5 MG/5 ML VIAL IV STA (23:41)
[2020-08-24] MEDS ORDERED: METOPROLOL TART 25 MG TABLET PO ONE (23:45)
[2020-08-25 00:12] VITALS: BP 171/113
--- NOTE | 2020-08-25 00:53 | REPVR ---
PROCEDURE INFORMATION: Exam: XR Chest, 2 Views Exam date and time: 08/24/2020 11:54 PM Age: 29 years old Clinical indication: Other: Wheezing, shortness of breath, cough TECHNIQUE: Imaging protocol: XR of the chest Views: 2 views. COMPARISON: CR Chest, 2 view PA, Lat 2020-08-18 23:29 FINDINGS: Lungs: Unremarkable. No consolidation. Pleural space: Unremarkable. No pleural effusion. No pneumothorax. Heart/Mediastinum: Unremarkable. No cardiomegaly. Bones/joints: Unremarkable. IMPRESSION: No acute findings. Electronically signed by: Matthew Wells On 08/25/2020 00:53:13 AM
[2020-08-25] MEDS ORDERED: METO1TAB87 PO (01:25)
[2020-08-25] MEDS ORDERED: IPRATROPIUM 0.5MG/ALBUTEROL 2.5MG INH SOL UD 3ML (DUONEB) NEB ONE (02:00)
[2020-08-25 02:21] VITALS: BP 135/68
--- NOTE | 2020-08-25 13:55 | ECGEPIP ---
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
== END 2020-08-25 02:23 | disposition home or self-care (01) ==
LOC: M ED 18:26
DX: J45.901 Unspecified asthma with (acute) exacerbation (principal); I10 Essential (primary) hypertension; R80.9 Proteinuria, unspecified; Z91.018 Allergy to other foods; Z79.899 Other long term (current) drug therapy; F12.20 Cannabis dependence, uncomplicated
CPT/HCPCS: 71046; 80048; 80076; 81001; 85025; 87088; 87186; 87486; 87581; 87633; 87798; 93005; 94640; 96374; 96375; 99284; J2930

== ENCOUNTER → 2020-12-27 | Outpatient (REF) | payer OTHER ==
[~2020-12-27] MED LIST changes: +METO1TAB87 PO; +MONT10TA10; +PRED10TA2
[2020-12-27 14:02] LABS: BASO # 0.1 10^3/uL (0.0-0.2); BASO % 0.7 % (0.0-1.0); EOS # 0.3 10^3/uL (0.0-0.5); EOS % 2.9 % (0.0-3.0); HEMATOCRIT 49.9 % (42.0-52.0); HEMOGLOBIN 16.9 g/dl (13.5-17.5); LYMPH # 3.2 10^3/uL (1.5-5.0); LYMPH % 36.1 % (24.0-44.0); MEAN CORPUSCULAR HEMOGLOBIN 28.9 pg (27.0-33.0); MEAN CORPUSCULAR HGB CONC 33.9 g/dl (32.0-36.5); MEAN CORPUSCULAR VOLUME 85.3 fl (80.0-96.0); MONO # 0.5 10^3/uL (0.0-0.8); MONO % 5.4 % (2.0-8.0); NEUTROPHILS # 4.7 10^3/uL (1.5-8.5); NEUTROPHILS % 54.3 % (36.0-66.0); PLATELET COUNT, AUTOMATED 186 10^3/uL (150-450); RED BLOOD COUNT 5.85 10^6/uL (4.30-6.10); WHITE BLOOD COUNT 8.7 10^3/uL (4.0-10.0)
[2020-12-27 14:37] LABS: ALBUMIN 4.1 GM/DL (3.2-5.2); ALT/SGPT 47 U/L (12-78); BILIRUBIN,TOTAL 0.5 MG/DL (0.2-1.0); BLOOD UREA NITROGEN 9 MG/DL (7-18); CALCIUM LEVEL 9.2 MG/DL (8.5-10.1); CARBON DIOXIDE LEVEL 30 MEQ/L (21-32); CHLORIDE LEVEL 103 MEQ/L (98-107); CHOLESTEROL LEVEL 172 MG/DL (<200); CHOLESTEROL RISK RATIO 4.095 (<5); CREATININE FOR GFR 0.96 MG/DL (0.70-1.30); FREE T4 0.82 NG/DL (0.76-1.46); GLOMERULAR FILTRATION RATE > 60.0 (>60); GLUCOSE, FASTING 81 MG/DL (70-100); HDL CHOLESTEROL 42 MG/DL (>40); LDL CHOLESTEROL 97 MG/DL (<100); MAGNESIUM LEVEL 2.2 MG/DL (1.8-2.4); NON-HDL-C 130 MG/DL; POTASSIUM SERUM 4.5 MEQ/L (3.5-5.1); SODIUM LEVEL 138 MEQ/L (136-145); TRIGLYCERIDES LEVEL 165 MG/DL (<150)
[2020-12-27 14:38] LABS: TOTAL 25(OH) VITAMIN D 13.2 NG/ML (30.0-100.0)
== END ==
LOC: M LAB REF 12:49
PROVIDERS: ATTEND Nurse Practitioner Family
DX: J45.909 Unspecified asthma, uncomplicated (principal); Z13.228 Encounter for screening for other metabolic disorders; I10 Essential (primary) hypertension; E66.9 Obesity, unspecified

== ENCOUNTER 2021-05-06 16:56 | Emergency (ER) | payer OTHER ==
[~2021-05-06] VITALS: Ht 177.8 cm; Wt 133.3 kg
[2021-05-06 16:56] VITALS: BP 151/93
== END 2021-05-06 18:15 | disposition left against medical advice (07) ==
LOC: M ED 16:56
DX: Z53.21 Procedure and treatment not carried out due to patient leaving prior to being seen by health care provider (principal)

== ENCOUNTER 2021-10-12 12:13 | Emergency (ER) | payer OTHER ==
[~2021-10-12] VITALS: Ht 177.8 cm; Wt 117.7 kg
[2021-10-12 12:14] VITALS: BP 135/78
[2021-10-12] MEDS ORDERED: METO1TAB7 (12:23)
[2021-10-12] MEDS ORDERED: OLOPATADINE 0.1% OPHTH SOL 5ML(PATANOL) OS ONE (13:15)
[2021-10-12] MEDS ORDERED: OLOP2.5D3 OS (13:15)
== END 2021-10-12 13:41 | disposition home or self-care (01) ==
LOC: M ED 12:13
DX: H10.12 Acute atopic conjunctivitis, left eye (principal); L50.9 Urticaria, unspecified; F41.9 Anxiety disorder, unspecified; K21.9 Gastro-esophageal reflux disease without esophagitis; R00.2 Palpitations; Z79.899 Other long term (current) drug therapy; Z91.018 Allergy to other foods

== ENCOUNTER → 2022-02-15 | Outpatient (CLI) | payer OTHER ==
[~2022-02-15] MED LIST changes: -LISI10TA15 PO; +LISI10TA24 PO; +METO1TAB7; -MONT10TA10; +MONT10TA97; +OLOP2.5D3 OS
== END ==
LOC: M EKG 18:01
PROVIDERS: ATTEND Orthopaedic Surgery
DX: R00.1 Bradycardia, unspecified (principal); S83.272D Complex tear of lateral meniscus, current injury, left knee, subsequent encounter; S83.012D Lateral subluxation of left patella, subsequent encounter; Y92.9 Unspecified place or not applicable; Y93.9 Activity, unspecified; Y99.9 Unspecified external cause status

== ENCOUNTER 2022-02-23 15:04 | Emergency (ER) | payer OTHER ==
[~2022-02-23] VITALS: Ht 177.8 cm; Wt 116.8 kg
[2022-02-23] MEDS ORDERED: CLAR5TAB11 PO (15:09)
[2022-02-23] MEDS ORDERED: methocarbamoL 750 MG TAB PO ONE (16:10)
[2022-02-23] MEDS ORDERED: KETOROLAC 60MG 2ML VIAL IM ONE (16:10)
[2022-02-23] MEDS ORDERED: METH-1165 PO (16:15)
[2022-02-23] MEDS ORDERED: NAPR-837 PO (16:15)
[2022-02-23 16:40] VITALS: BP 136/87
== END 2022-02-23 16:45 | disposition home or self-care (01) ==
LOC: M ED 15:04
DX: M62.838 Other muscle spasm (principal); J45.909 Unspecified asthma, uncomplicated; Z79.899 Other long term (current) drug therapy
CPT/HCPCS: 96372; 99283; J1885

== ENCOUNTER 2022-05-12 13:11 | Emergency (ER) | payer OTHER ==
[~2022-05-12] VITALS: Ht 177.8 cm; Wt 270.0 kg
[~2022-05-12 13:11] MED LIST changes: +ALBU2.5V10 INH; -ALBU83IN INH; +CLAR5TAB11 PO; +METH-1165 PO
[2022-05-12 13:12] VITALS: BP 131/86
== END 2022-05-12 15:35 | disposition home or self-care (01) ==
LOC: M ED 13:11
DX: S46.212A Strain of muscle, fascia and tendon of other parts of biceps, left arm, initial encounter (principal); W21.81XA Striking against or struck by football helmet, initial encounter; Y92.321 Football field as the place of occurrence of the external cause; Y93.61 Activity, american tackle football; I10 Essential (primary) hypertension; J45.909 Unspecified asthma, uncomplicated; K21.9 Gastro-esophageal reflux disease without esophagitis; Z91.018 Allergy to other foods; Z79.899 Other long term (current) drug therapy

== ENCOUNTER → 2022-12-25 | Outpatient (REF) | payer OTHER, MEDICAID ==
[2022-12-25 13:30] LABS: BASO # 0.1 10^3/uL (0.0-0.2); BASO % 0.8 % (0.0-1.0); EOS # 0.2 10^3/uL (0.0-0.5); EOS % 2.6 % (0.0-3.0); HEMATOCRIT 46.3 % (42.0-52.0); HEMOGLOBIN 16.1 g/dl (13.5-17.5); LYMPH # 3.2 10^3/uL (1.5-5.0); LYMPH % 35.3 % (24.0-44.0); MEAN CORPUSCULAR HGB CONC 34.8 g/dl (32.0-36.5); MEAN CORPUSCULAR VOLUME 83.4 fl (80.0-96.0); MONO # 0.6 10^3/uL (0.0-0.8); MONO % 6.4 % (2.0-8.0); NEUTROPHILS # 4.9 10^3/uL (1.5-8.5); NEUTROPHILS % 54.3 % (36.0-66.0); PLATELET COUNT, AUTOMATED 178 10^3/uL (150-450); RED BLOOD COUNT 5.55 10^6/uL (4.30-6.10); WHITE BLOOD COUNT 9.1 10^3/uL (4.0-10.0)
[2022-12-25 14:02] LABS: ALKALINE PHOSPHATASE 56 U/L (46-116); ALT/SGPT 63 U/L (7.0-40); AST/SGOT 30 U/L (<34); BILIRUBIN,TOTAL 0.4 MG/DL (0.3-1.2); BLOOD UREA NITROGEN 11 MG/DL (9-23); CALCIUM LEVEL 9.1 MG/DL (8.5-10.1); CARBON DIOXIDE LEVEL 28 MMOL/L (20-31); CHLORIDE LEVEL 105 MMOL/L (98-107); CHOLESTEROL LEVEL 144 MG/DL (<200); CHOLESTEROL RISK RATIO 3.79 (<5); CREATININE FOR GFR 0.78 MG/DL (0.70-1.30); GLOMERULAR FILTRATION RATE > 60.0 (>60); GLUCOSE, FASTING 94 MG/DL (60-100); HDL CHOLESTEROL 37.9 MG/DL (>40); LDL CHOLESTEROL 87.7 MG/DL (<100); NON-HDL-C 106.1 MG/DL; POTASSIUM SERUM 4.6 MMOL/L (3.5-5.1); SODIUM LEVEL 139 MMOL/L (136-145); TOTAL PROTEIN 6.7 G/DL (5.7-8.2); TRIGLYCERIDES LEVEL 92 MG/DL (<150)
[2022-12-25 14:03] LABS: THYROID STIMULATING HORMONE 0.828 uIU/ML (0.55-4.78)
[2022-12-25 14:04] LABS: TOTAL 25(OH) VITAMIN D 22.8 NG/ML (20.0-100.0)
[2022-12-25 14:35] LABS: HEMOGLOBIN A1c 5.4 % (4.0-6.0)
== END ==
LOC: M LAB REF 12:19
PROVIDERS: ATTEND Nurse Practitioner Family
DX: Z13.228 Encounter for screening for other metabolic disorders (principal)

== ENCOUNTER 2023-01-14 20:16 | Emergency (ER) | payer OTHER, MEDICAID ==
[~2023-01-14] VITALS: Ht 177.8 cm; Wt 137.7 kg
[2023-01-14] MEDS ORDERED: AMOX875T2 PO (22:44)
[2023-01-14] MEDS ORDERED: AUGMENTIN 875 MG TAB PO ONE (22:45)
[2023-01-14 22:59] VITALS: BP 138/99
== END 2023-01-14 23:00 | disposition home or self-care (01) ==
LOC: M ED 20:16
DX: H66.93 Otitis media, unspecified, bilateral (principal); Z91.013 Allergy to seafood; Z79.51 Long term (current) use of inhaled steroids; Z79.899 Other long term (current) drug therapy

== ENCOUNTER → 2024-01-09 | Outpatient (REF) | payer OTHER, MEDICAID ==
[~2024-01-09] MED LIST changes: +AMOX875T2 PO
[2024-01-09 17:54] LABS: BASO # 0.1 10^3/uL (0.0-0.2); BASO % 0.8 % (0.0-1.0); EOS # 0.2 10^3/uL (0.0-0.5); EOS % 2.9 % (0.0-3.0); HEMATOCRIT 46.7 % (42.0-52.0); HEMOGLOBIN 15.7 g/dl (13.5-17.5); LYMPH # 2.9 10^3/uL (1.5-5.0); LYMPH % 38.2 % (24.0-44.0); MEAN CORPUSCULAR HEMOGLOBIN 28.6 pg (27.0-33.0); MEAN CORPUSCULAR HGB CONC 33.6 g/dl (32.0-36.5); MEAN CORPUSCULAR VOLUME 85.2 fl (80.0-96.0); MONO # 0.5 10^3/uL (0.0-0.8); MONO % 5.8 % (2.0-8.0); PLATELET COUNT, AUTOMATED 160 10^3/uL (150-450); RED BLOOD COUNT 5.48 10^6/uL (4.30-6.10); WHITE BLOOD COUNT 7.7 10^3/uL (4.0-10.0)
[2024-01-09 18:05] LABS: CPK CREATINE PHOSPHOKINASE 238 U/L (46-171)
[2024-01-09 18:06] LABS: ALBUMIN 3.9 G/DL (3.2-5.2); ALKALINE PHOSPHATASE 55 U/L (46-116); ALT/SGPT 49 U/L (7.0-40); AST/SGOT 24 U/L (<34); BILIRUBIN,TOTAL 0.5 MG/DL (0.3-1.2); BLOOD UREA NITROGEN 10 MG/DL (9-23); CALCIUM LEVEL 9.2 MG/DL (8.5-10.1); CARBON DIOXIDE LEVEL 30 MMOL/L (20-31); CHLORIDE LEVEL 106 MMOL/L (98-107); CHOLESTEROL LEVEL 160 MG/DL (<200); CHOLESTEROL RISK RATIO 4.63 (<5); CREATININE FOR GFR 0.87 MG/DL (0.70-1.30); GLOMERULAR FILTRATION RATE > 60.0 (>60); GLUCOSE, FASTING 95 MG/DL (60-100); HDL CHOLESTEROL 34.5 MG/DL (>40); LDL CHOLESTEROL 99.5 MG/DL (<100); NON-HDL-C 125.5 MG/DL; POTASSIUM SERUM 4.7 MMOL/L (3.5-5.1); SODIUM LEVEL 138 MMOL/L (136-145); TOTAL PROTEIN 6.5 G/DL (5.7-8.2); TRIGLYCERIDES LEVEL 130 MG/DL (<150)
[2024-01-09 18:07] LABS: FREE T4 0.92 NG/DL (0.89-1.76)
[2024-01-09 18:08] LABS: THYROID STIMULATING HORMONE 1.048 uIU/ML (0.55-4.78)
== END ==
LOC: M LAB REF 16:12
PROVIDERS: ATTEND Family Medicine Addiction Medicine
DX: M62.81 Muscle weakness (generalized) (principal); I10 Essential (primary) hypertension

== ENCOUNTER 2024-02-11 12:49 | Emergency (ER) | payer MEDICAID, OTHER ==
[~2024-02-11] VITALS: Ht 177.8 cm; Wt 130.6 kg
[2024-02-11 13:43] LABS: BASO # 0.1 10^3/uL (0.0-0.2); BASO % 0.3 % (0.0-1.0); EOS # 0.2 10^3/uL (0.0-0.5); HEMATOCRIT 51.1 % (42.0-52.0); HEMOGLOBIN 17.6 g/dl (13.5-17.5); LYMPH # 1.4 10^3/uL (1.5-5.0); LYMPH % 9.2 % (24.0-44.0); MEAN CORPUSCULAR HEMOGLOBIN 28.7 pg (27.0-33.0); MEAN CORPUSCULAR HGB CONC 34.4 g/dl (32.0-36.5); MEAN CORPUSCULAR VOLUME 83.4 fl (80.0-96.0); MONO # 0.9 10^3/uL (0.0-0.8); MONO % 5.5 % (2.0-8.0); NEUTROPHILS # 12.9 10^3/uL (1.5-8.5); NEUTROPHILS % 83.5 % (36.0-66.0); PLATELET COUNT, AUTOMATED 181 10^3/uL (150-450); RED BLOOD COUNT 6.13 10^6/uL (4.30-6.10); WHITE BLOOD COUNT 15.4 10^3/uL (4.0-10.0)
[2024-02-11] MEDS: ONDANSETRON 4MG 2ML VIAL IV ONE (14:01)
[2024-02-11 14:05] LABS: ALBUMIN 4.6 G/DL (3.2-5.2); BILIRUBIN,DIRECT 0.2 MG/DL (<0.4); BILIRUBIN,TOTAL 0.6 MG/DL (0.3-1.2); TOTAL PROTEIN 7.4 G/DL (5.7-8.2)
[2024-02-11] MEDS ORDERED: ISOVUE-370 76% 100ML VIAL As Ordered ONE (15:23)
[2024-02-11] MEDS ORDERED: ONDA4TAB6 PO (17:19)
[2024-02-11] MEDS ORDERED: PEPC1TAB5 PO (17:19)
[2024-02-11 17:28] VITALS: BP 137/93; TEMP 97; O2SAT 98
== END 2024-02-11 17:33 | disposition home or self-care (01) ==
LOC: M ED 12:49
DX: A08.4 Viral intestinal infection, unspecified (principal); K21.9 Gastro-esophageal reflux disease without esophagitis; J45.909 Unspecified asthma, uncomplicated; R00.2 Palpitations; Z91.013 Allergy to seafood; Z79.51 Long term (current) use of inhaled steroids; Z79.899 Other long term (current) drug therapy
CPT/HCPCS: 74177; 80047; 80076; 83690; 85025; 87507; 96374; 99283; 99284; J2405; Q9967

== ENCOUNTER 2024-04-18 10:10 | Emergency (ER) | payer OTHER ==
[~2024-04-18] VITALS: Ht 180.3 cm; Wt 129.7 kg
[2024-04-18 10:10] VITALS: BP 142/89; TEMP 97.9; O2SAT 100
[~2024-04-18 10:10] MED LIST changes: -ALBU1TAB4 INH; +ALBU4TAB9 INH; +ONDA-282 PO; +PEPC1TAB5 PO
== END 2024-04-18 12:01 | disposition home or self-care (01) ==
LOC: M ED 10:10
DX: S62.201A Unspecified fracture of first metacarpal bone, right hand, initial encounter for closed fracture (principal); M67.431 Ganglion, right wrist; Y92.9 Unspecified place or not applicable; Y93.61 Activity, american tackle football; Y99.9 Unspecified external cause status; K21.9 Gastro-esophageal reflux disease without esophagitis; Z91.013 Allergy to seafood; Z79.51 Long term (current) use of inhaled steroids; Z79.899 Other long term (current) drug therapy

== ENCOUNTER → 2024-05-13 | Outpatient (CLI) | payer OTHER | LOC: M PLARAD 08:56 | PROVIDERS: ATTEND Orthopaedic Surgery Hand Surgery | DX: M25.831 Other specified joint disorders, right wrist (principal); R22.31 Localized swelling, mass and lump, right upper limb ==

== ENCOUNTER → 2024-11-23 | Outpatient (REF) | payer OTHER, MEDICAID ==
[~2024-11-23] MED LIST changes: -ADV500INH INH; +ADVA1AER10 INH
[2024-11-23 14:26] LABS: ALKALINE PHOSPHATASE 56 U/L (40-129); ALT/SGPT 29 U/L (7.0-40); AST/SGOT 19 U/L (<34); BILIRUBIN,TOTAL 0.3 MG/DL (0.3-1.2); BLOOD UREA NITROGEN 9 MG/DL (9-23); CALCIUM LEVEL 9.1 MG/DL (8.5-10.1); CARBON DIOXIDE LEVEL 30 MMOL/L (20-31); CHLORIDE LEVEL 106 MMOL/L (98-107); CHOLESTEROL LEVEL 154 MG/DL (<200); CREATININE FOR GFR 0.79 MG/DL (0.70-1.30); GLOMERULAR FILTRATION RATE > 60.0 (>60); GLUCOSE, FASTING 90 MG/DL (60-100); HDL CHOLESTEROL 35.8 MG/DL (>40); LDL CHOLESTEROL 67.2 MG/DL (<100); NON-HDL-C 118.2 MG/DL; POTASSIUM SERUM 4.4 MMOL/L (3.5-5.1); SODIUM LEVEL 142 MMOL/L (136-145); TOTAL PROTEIN 6.9 G/DL (5.7-8.2); TRIGLYCERIDES LEVEL 255 MG/DL (<150)
[2024-11-23 14:29] LABS: THYROID STIMULATING HORMONE 0.999 uIU/ML (0.55-4.78)
== END ==
LOC: M LAB REF 13:03
PROVIDERS: ATTEND Family Medicine Addiction Medicine
DX: I10 Essential (primary) hypertension (principal)

== ENCOUNTER → 2025-01-12 | Outpatient (CLI) | payer OTHER | LOC: M RAD 07:02 | PROVIDERS: ATTEND Orthopaedic Surgery | DX: M17.12 Unilateral primary osteoarthritis, left knee (principal) ==

== ENCOUNTER → 2025-02-16 | Outpatient (REF) | payer OTHER, MEDICAID ==
[2025-02-16 14:47] LABS: ALBUMIN 4.1 G/DL (3.2-5.2); ALKALINE PHOSPHATASE 60 U/L (40-129); ALT/SGPT 47 U/L (7.0-40); AST/SGOT 34 U/L (<34); BILIRUBIN,TOTAL 0.5 MG/DL (0.3-1.2); BLOOD UREA NITROGEN 11 MG/DL (9-23); CALCIUM LEVEL 9.3 MG/DL (8.5-10.1); CARBON DIOXIDE LEVEL 31 MMOL/L (20-31); CHLORIDE LEVEL 108 MMOL/L (98-107); CHOLESTEROL LEVEL 160 MG/DL (<200); CHOLESTEROL RISK RATIO 4.81 (<5); CREATININE FOR GFR 0.95 MG/DL (0.70-1.30); GLOMERULAR FILTRATION RATE > 90.0 (>60); GLUCOSE, FASTING 89 MG/DL (60-100); HDL CHOLESTEROL 33.2 MG/DL (>40); LDL CHOLESTEROL 95.4 MG/DL (<100); NON-HDL-C 126.8 MG/DL; POTASSIUM SERUM 4.5 MMOL/L (3.5-5.1); SODIUM LEVEL 142 MMOL/L (136-145); TOTAL PROTEIN 6.8 G/DL (5.7-8.2); TRIGLYCERIDES LEVEL 157 MG/DL (<150)
== END ==
LOC: M LAB REF 12:22
PROVIDERS: ATTEND Family Medicine Addiction Medicine
DX: Z68.41 Body mass index [BMI] 40.0-44.9, adult (principal)

== ENCOUNTER 2025-10-10 10:56 | Emergency (ER) | payer MEDICAID, OTHER ==
[~2025-10-10] VITALS: Ht 177.8 cm; Wt 129.6 kg
[2025-10-10] MEDS ORDERED: VITA200032 (11:24)
[2025-10-10] MEDS: KETOROLAC 60 MG/2 ML VIAL IM ONE (15:03)
[2025-10-10 16:42] VITALS: BP 140/90; TEMP 98.1; O2SAT 97
== END 2025-10-10 16:43 | disposition home or self-care (01) ==
LOC: M ED 10:56
DX: S30.0XXA Contusion of lower back and pelvis, initial encounter (principal); W00.0XXA Fall on same level due to ice and snow, initial encounter; Y99.0 Civilian activity done for income or pay; Y93.89 Activity, other specified
CPT/HCPCS: 72110; 72220; 96372; 99283; J1885